=== PATIENT | male | born 1990 | race Caucasian/White ===

== ENCOUNTER 2017-01-18 20:17 | Emergency (ER) | payer BC ==
--- NOTE | 2017-01-18 20:40 | EDM.PDOC ---
ED HPI GENERAL MEDICAL PROBLEM - General Chief Complaint: Allergic Reaction Stated Complaint: SPOTS ON BOTH HANDS Time Seen by Provider: 01/18/17 20:29 - History of Present Illness INITIAL COMMENTS - FREE TEXT/NARRATIVE: HISTORY AND PHYSICAL: History of present illness: The patient is a 26-year-old male with a known history of allergies to dogs who was exposed to a dog 2 days ago and has had a rash diffusely on his upper extremities face and a little bit on his back for the last 2 days. The patient states that in the past he has been on chronic medication and allergy shots but he has not done that in many years. The patient states that when he was exposed to the dog he started feeling itching and the rash and he took [id number] Benadryl and cortisone cream but says that that has not been working and he knows that he needs oral steroids. He has no oropharyngeal swelling difficulty speaking or swallowing no chest pain shortness of breath or abdominal complaints. He currently feels very itchy. He says that on the rest of and Friday he was working outdoors in the heat and he feels that the heat and sweating has made the rash even worse. Review of systems: As per history of present illness and below otherwise all systems reviewed and negative. Past medical history: As per history of present illness and as reviewed below otherwise noncontributory. Surgical history: As per history of present illness and as reviewed below otherwise noncontributory. Social history: No reported history of drug or alcohol abuse. Family history: As per history of present illness and as reviewed below otherwise noncontributory. Physical exam: Gen.: Well-developed well-nourished man speaking clearly and easily in the ED and vital signs have been reviewed by me HEENT: Atraumatic, normocephalic, pupils reactive, negative for conjunctival pallor or scleral icterus, mucous membranes moist, throat clear, neck supple, nontender, trachea midline. Oropharyngeal swelling is appreciated Lungs: Clear to auscultation, breath sounds equal bilaterally, chest nontender. Heart: S1S2, regular rate and rhythm no overt murmurs Abdomen: Soft, nondistended, nontender. NABS. Skin: There is an urticarial the rash seen diffusely on the hands forearms and the remainder of the upper extremity as well as some patchy areas on the anterior neck cheeks and lower back. Turgor is normal. Genitourinary: Deferred. Rectal: Deferred. Extremities: Atraumatic, negative for cords or calf pain. Neurovascular unremarkable. Neuro: Awake, alert, oriented. Cranial nerves II through XII unremarkable. Cerebellum unremarkable. Motor and sensory unremakable throughout. Exam nonfocal. Diagnostics: [] Therapeutics: [] Patient was offered IM steroids and declines and would like oral prednisone. I will also give him Vistaril to utilize the Benadryl does not seem to be working. Impression: Allergic reaction Definitive disposition and diagnosis as appropriate pending reevaluation and review of above. - Related Data Allergies Allergy/AdvReac Type Severity Reaction Status Date / Time No Known Allergies Allergy Verified 01/18/17 20:26 Home Meds: Home Meds . [No Known Home Meds] 01/18/17 [History] Past Medical History - Past Health History Medical/Surgical History: Denies Medical/Surgical History HEENT History: Reports: None Cardiovascular History: Reports: None Respiratory History: Reports: None Gastrointestinal History: Reports: None Genitourinary History: Reports: None Musculoskeletal History: Reports: None Psychiatric History: Reports: None Endocrine/Metabolic History: Reports: None - Infectious Disease History Infectious Disease History: Reports: C-Difficile Social & Family History - Family History Family Medical History: Noncontributory - Tobacco Use Smoking Status *Q: Current Every Day Smoker Years of Tobacco use: 4 Packs/Tins Daily: 1 - Recreational Drug Use Recreational Drug Use: Yes ED ROS ALLERGIC REACTION - Review of Systems Review Of Systems: ROS reveals no pertinent complaints other than HPI. ED EXAM GENERAL NO PERIP PULSE - Physical Exam Exam: See Below (See dictation) Course - Vital Signs Last Recorded V/S: Last Vital Signs Temp 36.4 C 01/18/17 20:26 Pulse 65 01/18/17 20:26 Resp 17 01/18/17 20:26 BP 129/73 01/18/17 20:26 Pulse Ox 97 01/18/17 20:26 Departure - Departure Time of Disposition: 20:39 Disposition: Home, Self-Care 01 Condition: Good Clinical Impression: Allergic reaction Qualifiers: Encounter type: initial encounter Qualified Code(s): T78.40XA - Allergy, unspecified, initial encounter - Discharge Information Additional Instructions: The following information is given to patients seen in the emergency department who are being discharged to home. This information is to outline your options for follow-up care. We provide all patients seen in our emergency department with a follow-up referral. The need for follow-up, as well as the timing and circumstances, are variable depending upon the specifics of your emergency department visit. If you don't have a primary care physician on staff, we will provide you with a referral. We always advise you to contact your personal physician following an emergency department visit to inform them of the circumstance of the visit and for follow-up with them and/or the need for any referrals to a consulting specialist. The emergency department will also refer you to a specialist when appropriate. This referral assures that you have the opportunity for followup care with a specialist. All of these measure are taken in an effort to provide you with optimal care, which includes your followup. Under all circumstances we always encourage you to contact your private physician who remains a resource for coordinating your care. When calling for followup care, please make the office aware that this follow-up is from your recent emergency room visit. If for any reason you are refused follow-up, please contact the [facility] emergency department at and ask to speak to the emergency department charge nurse. [facility] Primary care- Internal Medicine and Family [address] [address] These take the prednisone until it is finished. Please use [id number] Benadryl 50 mg every 6 hours for the next 2 days and switched to Vistaril that you have been prescribed if the Benadryl is not working. Please try to avoid the heat and excessive sweating. Please call and follow-up in the clinic for further care and evaluation and return here as needed and as discussed.
== END 2017-01-18 20:54 | disposition home or self-care (01) ==
LOC: MW.ED 20:17
CPT/HCPCS: 99283